=== PATIENT | male | born 1940 | race Caucasian/White ===

== ENCOUNTER 2020-03-06 13:43 | Emergency (ER) | payer MEDICARE, OTHER ==
--- NOTE | 2020-03-06 14:22 | EDM.PDOC ---
ED HPI GENERAL MEDICAL PROBLEM - General Chief Complaint: Respiratory Problem Stated Complaint: POSSIBLE COVID Time Seen by Provider: 03/06/20 13:57 Source of Information: Reports: Patient History Limitations: Reports: No Limitations - History of Present Illness INITIAL COMMENTS - FREE TEXT/NARRATIVE: HISTORY AND PHYSICAL: History of present illness: Patient is a 79-year-old male who presents emergency room today with his daughter for concern of possible COVID-19 infection. Patient states for the past 10 days he has had a cough, shortness of breath, sore throat, generalized weakness, chills but states he has not checked her temperature, and chest discomfort. Patient states over the last 1-2 days he has had worsening SOB/CP which is worse with deep inspiration. Patient states that he has been in direct contact with Covid as his daughter was tested positive for Covid 1 to 2 weeks ago and has been living with him. Patient states that his on Saturday, 2 days ago from a heart attack. Patient states he has a history of COPD and at his baseline his oxygen is 90% on room air and states that he does not have oxygen available to him at home. Patient states he has had 2 prior stents in his heart 8 years ago. Patient expresses a decrease in appetite. Patient denies fever. Denies headache, neck stiff ness, change in vision, syncope, or near syncope. Denies vomiting, abdominal pain, diarrhea, constipation, or dysuria. Has not noted any blood in urine or stool. Review of systems: As per history of present illness and below otherwise all systems reviewed and negative. Past medical history: As per history of present illness and as reviewed below otherwise noncontributory. Surgical history: As per history of present illness and as reviewed below otherwise noncontributory. Social history: See social history for further information Family history: As per history of present illness and as reviewed below otherwise noncontributory. Physical exam: General: Patient is alert, oriented, and in no acute distress. Patient sitting comfortably on exam table. Vitals stable and reviewed by me. O2 90% on my exam (Patient and daughter state this is his baseline with COPD). HEENT: Atraumatic, normocephalic, pupils equal and reactive bilaterally, negative for conjunctival pallor or scleral icterus, mucous membranes moist, TMs normal bilaterally, throat clear, neck supple, nontender, trachea midline. No drooling or trismus noted. No meningeal signs. No hot potato voice noted. Lungs: Patient speaking clearly without breathlessness, no wheezing or stridor, no accessory muscle use or respiratory distress. Auscultation deferred due to current COV-ID 19 outbreak. Heart: Auscultation deferred due to current COV-ID 19 outbreak. Dry cough on exam. Abdomen: Soft, nondistended, nontender. Negative for masses or hepatosplenomegaly. Negative for costovertebral tenderness. Pelvis: Stable nontender. Genitourinary: Deferred. Rectal: Deferred. Skin: Intact, warm, dry. No lesions or rashes noted. Extremities: Atraumatic, negative for cords or calf pain. Neurovascular unremarkable. Neuro: Awake, alert, oriented. Cranial nerves II through XII unremarkable. Cerebellum unremarkable. Motor and sensory unremarkable throughout. Exam nonfocal. Notes: HEART Score 6: Moderate Risk Dr. Rangel verbally involved in patient care. See his dictations for further EKG interpretation. Upon reexamination of patient, he is chest pain free but still expresses discomfort with deep inspiration and shortness of breath. He is comfortable on exam and remains vitally stable. Repeat troponin has increased, repeat EKG shows no acute changes. Patient does have chronic kidney disease and this appears stable today from past lab work. Prior past troponin for patient have all been negative that we have available on file for comparison. Although elevations in troponin related to COVID19 infection/CKD were considered/are possible, patient is a high risk for ACS and requires further evaluation by cardiology/higher level of care to r/o ACS. I did call and speak to [facility] and accepting of patient transfer. EMS arranged. Voices understanding and is agreeable to plan of care. Denies any further questions or concerns at this time. Diagnostics: COVID-19/influenza a/B, CBC, CMP, UA, EKG, chest x-ray, troponin D-dimer Therapeutics: Saline lock, ASA, Heparin bolus/gtt Impression: NSTEMI COVID-19 infection Chronic kidney disease, stable Plan: Transfer to [facility] via EMS. Definitive disposition and diagnosis as appropriate pending reevaluation and review of above. hips Pain Score (Numeric/FACES): 10 - Related Data Allergies Allergy/AdvReac Type Severity Reaction Status Date / Time codeine Allergy Other Verified 03/06/20 14:16 Penicillins Allergy Facial Verified 03/06/20 14:16 Swelling Home Meds: Home Meds Clopidogrel [Plavix] 75 mg PO DAILY 08/18/13 [History] atorvaSTATin [Lipitor] 40 mg PO BEDTIME 08/18/13 [History] Hydrochlorothiazide 25 mg PO DAILY #30 tablet 09/15/14 [Rx] Aspirin 81 mg PO DAILY 09/30/16 [History] Empagliflozin [Jardiance] 25 mg PO DAILY 03/09/18 [History] Fenofibrate 160 mg PO DAILY 03/09/18 [History] Isosorbide Mononitrate [Imdur] 60 mg PO DAILY 03/09/18 [History] Metoprolol Tartrate [Lopressor] 50 mg PO DAILY 03/09/18 [History] Omeprazole 20 mg PO BID 03/09/18 [History] Pioglitazone [Actos] 30 mg PO DAILY 03/09/18 [History] dilTIAZem HCL [Dilt-Xr] 240 mg PO DAILY 03/09/18 [History] Glimepiride 2 mg PO DAILY 03/06/20 [History] Past Medical History - Past Health History Medical/Surgical History: Denies Medical/Surgical History HEENT History: Reports: Hard of Hearing, Impaired Vision Cardiovascular History: Reports: High Cholesterol, Hypertension, Stents Respiratory History: Reports: None Gastrointestinal History: Reports: None Genitourinary History: Reports: None Musculoskeletal History: Reports: Arthritis Neurological History: Reports: None Psychiatric History: Reports: None Endocrine/Metabolic History: Reports: Diabetes, Type II Hematologic History: Reports: Anticoagulation Therapy Dermatologic History: Reports: None - Infectious Disease History Infectious Disease History: Reports: None Social & Family History - Family History Family Medical History: No Pertinent Family History ED ROS GENERAL - Review of Systems Review Of Systems: Comprehensive ROS is negative, except as noted in HPI. ED EXAM, GENERAL - Physical Exam Exam: See Below (See dictation) Course - Vital Signs Last Recorded V/S: Last Vital Signs Temp 97.8 F 03/06/20 14:13 Pulse 63 03/06/20 18:54 Resp 18 03/06/20 17:00 BP 122/41 L 03/06/20 18:54 Pulse Ox 93 L 03/06/20 18:54 - Orders/Labs/Meds Orders: Active Orders 24 hr Category Date Time Status Saline Lock Insert [OM.PC] Stat Oth 03/06/20 14:37 Ordered Labs: Laboratory Tests 03/06/20 03/06/20 03/06/20 Range/Units 14:58 15:15 15:15 WBC 3.63 L (4.0-11.0) K/uL RBC 4.43 L (4.50-5.90) M/uL Hgb 14.3 (13.0-17.0) g/dL Hct 43.8 (38.0-50.0) % MCV 98.9 H (80.0-98.0) fL MCH 32.3 H (27.0-32.0) pg MCHC 32.6 (31.0-37.0) g/dL RDW Std Deviation 48.7 (28.0-62.0) fl RDW Coeff of Guille 13 (11.0-15.0) % Plt Count 121 L (150-400) K/uL MPV 10.80 (7.40-12.00) fL Neut % (Auto) 60.6 (48.0-80.0) % Lymph % (Auto) 28.4 (16.0-40.0) % Butler % (Auto) 11.0 (0.0-15.0) % Eos % (Auto) 0.0 (0.0-7.0) % Baso % (Auto) 0.0 (0.0-1.5) % Neut # (Auto) 2.2 (1.4-5.7) K/uL Lymph # (Auto) 1.0 (0.6-2.4) K/uL Butler # (Auto) 0.4 (0.0-0.8) K/uL Eos # (Auto) 0.0 (0.0-0.7) K/uL Baso # (Auto) 0.0 (0.0-0.1) K/uL Nucleated RBC % 0.0 /100WBC Nucleated RBCs # 0 K/uL INR APTT (18.6-31.3) SEC D-Dimer, Quantitative 0.23 (0.0-0.50) mg/L FEU Sodium (136-148) mmol/L Potassium (3.5-5.1) mmol/L Chloride (98-107) mmol/L Carbon Dioxide (21.0-32.0) mmol/L BUN (7.0-18.0) mg/dL Creatinine (0.8-1.3) mg/dL Est Cr Clr Drug Dosing mL/min Estimated GFR (MDRD) ml/min Glucose (74-106) mg/dL POC Glucose (60-110) mg/dL Calcium (8.5-10.1) mg/dL Total Bilirubin (0.2-1.0) mg/dL AST (15-37) IU/L ALT (14-63) IU/L Alkaline Phosphatase (46-116) U/L Troponin I (0.000-0.056) ng/mL Total Protein (6.4-8.2) g/dL Albumin (3.4-5.0) g/dL Globulin (2.6-4.0) g/dL Albumin/Globulin Ratio (0.9-1.6) Urine Color YELLOW Urine Appearance CLEAR Urine pH 5.5 (5.0-8.0) Ur Specific [place] 1.020 (1.001-1.035) Urine Protein TRACE H (NEGATIVE) mg/dL Urine Glucose (UA) 500 H (NEGATIVE) mg/dL Urine Ketones NEGATIVE (NEGATIVE) mg/dL Urine Occult Blood NEGATIVE (NEGATIVE) Urine Nitrite NEGATIVE (NEGATIVE) Urine Bilirubin NEGATIVE (NEGATIVE) Urine Urobilinogen 0.2 (<2.0) EU/dL Ur Leukocyte Esterase NEGATIVE (NEGATIVE) Urine RBC 0-2 (0-2/HPF) Urine WBC 0-2 (0-5/HPF) Ur Epithelial Cells RARE (NONE-FEW) Urine Bacteria RARE (NEGATIVE) Influenza Type A RNA (NEGATIVE) Influenza Type B RNA (NEGATIVE) SARS-CoV-2 RNA (SHAHLA) (NEGATIVE) 03/06/20 03/06/20 03/06/20 Range/Units 15:15 15:22 17:28 WBC (4.0-11.0) K/uL RBC (4.50-5.90) M/uL Hgb (13.0-17.0) g/dL Hct (38.0-50.0) % MCV (80.0-98.0) fL MCH (27.0-32.0) pg MCHC (31.0-37.0) g/dL RDW Std Deviation (28.0-62.0) fl RDW Coeff of Guille (11.0-15.0) % Plt Count (150-400) K/uL MPV (7.40-12.00) fL Neut % (Auto) (48.0-80.0) % Lymph % (Auto) (16.0-40.0) % Butler % (Auto) (0.0-15.0) % Eos % (Auto) (0.0-7.0) % Baso % (Auto) (0.0-1.5) % Neut # (Auto) (1.4-5.7) K/uL Lymph # (Auto) (0.6-2.4) K/uL Butler # (Auto) (0.0-0.8) K/uL Eos # (Auto) (0.0-0.7) K/uL Baso # (Auto) (0.0-0.1) K/uL Nucleated RBC % /100WBC Nucleated RBCs # K/uL INR APTT (18.6-31.3) SEC D-Dimer, Quantitative (0.0-0.50) mg/L FEU Sodium 134 L (136-148) mmol/L Potassium 3.5 (3.5-5.1) mmol/L Chloride 97 L (98-107) mmol/L Carbon Dioxide 29.3 (21.0-32.0) mmol/L BUN 29 H (7.0-18.0) mg/dL Creatinine 1.5 H (0.8-1.3) mg/dL Est Cr Clr Drug Dosing 43.93 mL/min Estimated GFR (MDRD) 45.4 ml/min Glucose 117 H (74-106) mg/dL POC Glucose (60-110) mg/dL Calcium 9.4 (8.5-10.1) mg/dL Total Bilirubin 0.8 (0.2-1.0) mg/dL AST 71 H (15-37) IU/L ALT 48 (14-63) IU/L Alkaline Phosphatase 40 L (46-116) U/L Troponin I 0.066 H* 0.072 H* (0.000-0.056) ng/mL Total Protein 7.8 (6.4-8.2) g/dL Albumin 3.6 (3.4-5.0) g/dL Globulin 4.2 H (2.6-4.0) g/dL Albumin/Globulin Ratio 0.9 (0.9-1.6) Urine Color Urine Appearance Urine pH (5.0-8.0) Ur Specific [place] (1.001-1.035) Urine Protein (NEGATIVE) mg/dL Urine Glucose (UA) (NEGATIVE) mg/dL Urine Ketones (NEGATIVE) mg/dL Urine Occult Blood (NEGATIVE) Urine Nitrite (NEGATIVE) Urine Bilirubin (NEGATIVE) Urine Urobilinogen (<2.0) EU/dL Ur Leukocyte Esterase (NEGATIVE) Urine RBC (0-2/HPF) Urine WBC (0-5/HPF) Ur Epithelial Cells (NONE-FEW) Urine Bacteria (NEGATIVE) Influenza Type A RNA NEGATIVE (NEGATIVE) Influenza Type B RNA NEGATIVE (NEGATIVE) SARS-CoV-2 RNA (SHAHLA) POSITIVE H (NEGATIVE) 03/06/20 03/06/20 Range/Units 18:01 18:10 WBC (4.0-11.0) K/uL RBC (4.50-5.90) M/uL Hgb (13.0-17.0) g/dL Hct (38.0-50.0) % MCV (80.0-98.0) fL MCH (27.0-32.0) pg MCHC (31.0-37.0) g/dL RDW Std Deviation (28.0-62.0) fl RDW Coeff of Guille (11.0-15.0) % Plt Count (150-400) K/uL MPV (7.40-12.00) fL Neut % (Auto) (48.0-80.0) % Lymph % (Auto) (16.0-40.0) % Butler % (Auto) (0.0-15.0) % Eos % (Auto) (0.0-7.0) % Baso % (Auto) (0.0-1.5) % Neut # (Auto) (1.4-5.7) K/uL Lymph # (Auto) (0.6-2.4) K/uL Butler # (Auto) (0.0-0.8) K/uL Eos # (Auto) (0.0-0.7) K/uL Baso # (Auto) (0.0-0.1) K/uL Nucleated RBC % /100WBC Nucleated RBCs # K/uL INR 1.35 APTT 32.0 H (18.6-31.3) SEC D-Dimer, Quantitative (0.0-0.50) mg/L FEU Sodium (136-148) mmol/L Potassium (3.5-5.1) mmol/L Chloride (98-107) mmol/L Carbon Dioxide (21.0-32.0) mmol/L BUN (7.0-18.0) mg/dL Creatinine (0.8-1.3) mg/dL Est Cr Clr Drug Dosing mL/min Estimated GFR (MDRD) ml/min Glucose (74-106) mg/dL POC Glucose 111 H (60-110) mg/dL Calcium (8.5-10.1) mg/dL Total Bilirubin (0.2-1.0) mg/dL AST (15-37) IU/L ALT (14-63) IU/L Alkaline Phosphatase (46-116) U/L Troponin I (0.000-0.056) ng/mL Total Protein (6.4-8.2) g/dL Albumin (3.4-5.0) g/dL Globulin (2.6-4.0) g/dL Albumin/Globulin Ratio (0.9-1.6) Urine Color Urine Appearance Urine pH (5.0-8.0) Ur Specific [place] (1.001-1.035) Urine Protein (NEGATIVE) mg/dL Urine Glucose (UA) (NEGATIVE) mg/dL Urine Ketones (NEGATIVE) mg/dL Urine Occult Blood (NEGATIVE) Urine Nitrite (NEGATIVE) Urine Bilirubin (NEGATIVE) Urine Urobilinogen (<2.0) EU/dL Ur Leukocyte Esterase (NEGATIVE) Urine RBC (0-2/HPF) Urine WBC (0-5/HPF) Ur Epithelial Cells (NONE-FEW) Urine Bacteria (NEGATIVE) Influenza Type A RNA (NEGATIVE) Influenza Type B RNA (NEGATIVE) SARS-CoV-2 RNA (SHAHLA) (NEGATIVE) Meds: Medications Discontinued Medications Generic Name Dose Route Start Last Admin Trade Name Freq PRN Reason Stop Dose Admin Aspirin 324 mg 03/06/20 16:03 03/06/20 16:07 Aspirin PO 03/06/20 16:04 324 mg ONETIME ONE Administration Aspirin Confirm 03/06/20 16:04 03/06/20 16:06 Aspirin Administered 03/06/20 16:05 Not Given Dose 324 mg .ROUTE .STK-MED ONE Dexamethasone 6 mg 03/06/20 17:18 03/06/20 17:38 Decadron IVPUSH 03/06/20 17:19 6 mg ONETIME ONE Administration Heparin Sodium (Porcine) 4,000 units 03/06/20 18:21 03/06/20 18:45 Heparin Sodium IVPUSH 03/06/20 18:22 4,000 units .BOLUS ONE Administration Sodium Chloride 1,000 mls @ 999 mls/hr 03/06/20 14:37 03/06/20 15:04 Normal Saline IV 03/06/20 15:37 999 mls/hr BOLUS ONE Administration Heparin Sodium/Sodium Chloride 500 mls @ 26.127 mls/hr 03/06/20 18:15 Heparin 25,000 Units In 1/2 Ns 500 Ml IV TITRATE ROSA Protocol 12 UNITS/KG/HR Heparin Sodium/Sodium Chloride 500 mls @ 26.127 mls/hr 03/06/20 18:15 Heparin 25,000 Units In 1/2 Ns 500 Ml IV TITRATE ROSA Protocol 12 UNITS/KG/HR Heparin Sodium/Sodium Chloride 500 mls @ 26.127 mls/hr 03/06/20 18:30 03/06/20 18:45 Heparin 25,000 Units In 1/2 Ns 500 Ml IV 12 units/kg/hr TITRATE ROSA 26.127 mls/hr Administration Protocol 12 UNITS/KG/HR Sodium Chloride 10 ml 03/06/20 14:37 03/06/20 15:04 Saline Flush FLUSH 10 ml ASDIRECTED PRN Administration Keep Vein Open Sodium Chloride 2.5 ml 03/06/20 14:37 03/06/20 15:05 Saline Flush FLUSH 2.5 ml ASDIRECTED PRN Administration Keep Vein Open Departure - Departure Time of Disposition: 18:37 Disposition: DC/Tfer to Acute Hospital 02 Condition: Fair Clinical Impression: COVID-19 virus infection, Non-ST elevation CT (NSTEMI) Chronic kidney disease Qualifiers: Chronic kidney disease stage: unspecified stage Qualified Code(s): N18.9 - Chronic kidney disease, unspecified - Discharge Information Referrals: PCP,Not In Area [Primary Care Provider] - Forms: ED Department Discharge Sepsis Event Note (ED) - Evaluation Sepsis Screening Result: No Definite Risk - Focused Exam Vital Signs: Vital Signs Temp Pulse Resp BP Pulse Ox 03/06/20 18:54 63 122/41 L 93 L 03/06/20 17:00 67 18 170/86 H 91 L 03/06/20 16:22 68 18 145/58 H 92 L 03/06/20 14:13 97.8 F 70 16 116/51 L 91 L - My Orders Last 24 Hours: My Active Orders 03/06/20 14:37 Saline Lock Insert [OM.PC] Stat - Assessment/Plan Last 24 Hours: My Active Orders 03/06/20 14:37 Saline Lock Insert [OM.PC] Stat
--- NOTE | 2020-03-06 14:27 | PCM.SN.2 ---
- Free Text/Narrative Note: EKG Time 219pm Rate 68 NSR no LENORA
[2020-03-06] MEDS ORDERED: Sodium Chloride 0.9% 10 ML Syringe FLUSH PRN (14:37)
[2020-03-06] MEDS ORDERED: Sodium Chloride 0.9% 1,000 ML IV ONE (14:37)
[2020-03-06] MEDS ORDERED: Sodium Chloride 0.9% 2.5 ML Syringe FLUSH PRN (14:37)
--- NOTE | 2020-03-06 15:29 | CR ---
INDICATION: Dyspnea and chest pain COMPARISON: March 09, 2018 TECHNIQUE: Single-view portable chest radiograph FINDINGS: TUBES AND LINES: None. HEART AND MEDIASTINUM: Heart size top normal and appears unchanged.. LUNGS AND PLEURAL SPACES: Mild to moderate ground-glass opacities involving the mid lungs and the bases bilaterally. This is probably inflammatory.Consider viral pneumonia. OSSEOUS STRUCTURES: Age-appropriate appearance. No acute focal finding. IMPRESSION: Mild to moderate ground-glass opacities involving the mid lungs in the bases bilaterally. No pleural effusion or pneumothorax. This is probably inflammatory. Consider viral pneumonia. Dictated by Yaya Thorpe MD @ Mar 06 2020 3:26PM Signed by Dr. Yaya Thorpe @ Mar 06 2020 3:27PM
[2020-03-06 15:58] LABS: CARBON DIOXIDE,CO2 29.3 mmol/L (21.0-32.0); POTASSIUM,K 3.5 mmol/L (3.5-5.1)
[2020-03-06] MEDS ORDERED: Aspirin 81 MG Tab.Chew PO ONE (16:03)
[2020-03-06] MEDS ORDERED: Aspirin 81 MG Tab.Chew ONE (16:04)
[2020-03-06 16:17] LABS: CORONAVIRUS COVID-19 NAA POSITIVE (NEGATIVE); INFLUENZA A NAA NEGATIVE (NEGATIVE); INFLUENZA B NAA NEGATIVE (NEGATIVE)
[2020-03-06] MEDS ORDERED: Dexamethasone 10 MG/ML SDV IVPUSH ONE (17:18)
[2020-03-06] MEDS ORDERED: Heparin Sodium/0.45% NaCl 500 ML IV SCH ×3 (18:15→18:30)
[2020-03-06] MEDS ORDERED: Heparin Sodium 5,000 Units/ML Vial IVPUSH ONE (18:21)
[2020-03-06 18:54] VITALS: BP 122/41; PULSE 63
== END 2020-03-06 17:25 ==
LOC: MW.ED 13:43
DX: U07.1 COVID-19 (principal); I21.4 Non-ST elevation (NSTEMI) myocardial infarction; I12.9 Hypertensive chronic kidney disease with stage 1 through stage 4 chronic kidney disease, or unspecified chronic kidney disease; E11.22 Type 2 diabetes mellitus with diabetic chronic kidney disease; N18.9 Chronic kidney disease, unspecified; E78.00 Pure hypercholesterolemia, unspecified; M19.90 Unspecified osteoarthritis, unspecified site; Z88.5 Allergy status to narcotic agent; Z88.0 Allergy status to penicillin; Z79.02 Long term (current) use of antithrombotics/antiplatelets; Z79.01 Long term (current) use of anticoagulants; Z79.82 Long term (current) use of aspirin; Z79.899 Other long term (current) drug therapy
CPT/HCPCS: 0240U; 36415; 71045; 80053; 81001; 82962; 84484; 85025; 85379; 85610; 85730; 93005; 96374; 99285; A9270; J1100; J1644; J7030; 93010; 99284

== ENCOUNTER 2020-03-11 14:01 | Emergency (ER) | payer MEDICARE, OTHER ==
--- NOTE | 2020-03-11 14:32 | EDM.PDOC ---
ED HPI GENERAL MEDICAL PROBLEM - General Chief Complaint: Respiratory Problem Stated Complaint: DIFFICULTY BREATHING/STOMACH PAIN Time Seen by Provider: 03/11/20 14:16 Source of Information: Reports: Patient History Limitations: Reports: No Limitations - History of Present Illness INITIAL COMMENTS - FREE TEXT/NARRATIVE: Patient is a 79-year-old male who previous has a positive for Covid presents today for increasing shortness of breath and fatigue. Patient also reporting some abdominal pain. Patient states at home that they checked his pulse ox and he read about 88%. Patient is able to walk to the bathroom to the kitchen but has not been doing much walking. Patient has had decreased appetite does keep some food down. Denies fever chills or chest pain. In the hospital did not require oxygen will discharge but was on oxygen 2 L for comfort while admitted. abdomen Pain Score (Numeric/FACES): 4 - Related Data Allergies Allergy/AdvReac Type Severity Reaction Status Date / Time codeine Allergy Other Verified 03/11/20 14:49 Penicillins Allergy Facial Verified 03/11/20 14:49 Swelling Home Meds: Home Meds Clopidogrel [Plavix] 75 mg PO DAILY 08/18/13 [History] Hydrochlorothiazide 25 mg PO DAILY #30 tablet 09/15/14 [Rx] Empagliflozin [Jardiance] 25 mg PO DAILY 03/09/18 [History] Fenofibrate 160 mg PO DAILY 03/09/18 [History] Isosorbide Mononitrate [Imdur] 60 mg PO DAILY 03/09/18 [History] Metoprolol Tartrate [Lopressor] 50 mg PO BID 03/09/18 [History] Omeprazole 40 mg PO DAILY 03/09/18 [History] Pioglitazone [Actos] 30 mg PO DAILY 03/09/18 [History] dilTIAZem HCL [Dilt-Xr] 240 mg PO DAILY 03/09/18 [History] Glimepiride 2 mg PO DAILY 03/06/20 [History] Dulaglutide [Trulicity] 1.5 mg SQ WEEKLY 03/11/20 [History] Nystatin [Nystatin Crm] 1 applic TP BID 03/11/20 [History] Triamcinolone Acetonide [Triamcinolone Acetonide 0.1% Oint] 1 applic TP BID 03/11/20 [History] atorvaSTATin [Lipitor] 40 mg PO BEDTIME 03/11/20 [History] Past Medical History - Past Health History Medical/Surgical History: Denies Medical/Surgical History HEENT History: Reports: Hard of Hearing, Impaired Vision Cardiovascular History: Reports: High Cholesterol, Hypertension, Stents Respiratory History: Reports: None Gastrointestinal History: Reports: None Genitourinary History: Reports: None Musculoskeletal History: Reports: Arthritis Neurological History: Reports: None Psychiatric History: Reports: None Endocrine/Metabolic History: Reports: Diabetes, Type II Hematologic History: Reports: Anticoagulation Therapy Dermatologic History: Reports: None - Infectious Disease History Infectious Disease History: Reports: None - Past Surgical History Other Cardiovascular Surgeries/Procedures: 2 stents Social & Family History - Family History Family Medical History: No Pertinent Family History ED ROS GENERAL - Review of Systems Review Of Systems: See Below Constitutional: Reports: No Symptoms HEENT: Reports: No Symptoms Respiratory: Reports: Shortness of Breath Cardiovascular: Reports: No Symptoms Endocrine: Reports: No Symptoms GI/Abdominal: Reports: Abdominal Pain : Reports: No Symptoms Musculoskeletal: Reports: No Symptoms Skin: Reports: No Symptoms Neurological: Reports: No Symptoms Psychiatric: Reports: No Symptoms Hematologic/Lymphatic: Reports: No Symptoms Immunologic: Reports: No Symptoms ED EXAM, GENERAL - Physical Exam Exam: See Below Exam Limited By: No Limitations General Appearance: Alert, WD/WN Respiratory/Chest: No Respiratory Distress, Lungs Clear Cardiovascular: Normal Peripheral Pulses, Regular Rate, Rhythm GI/Abdominal: Normal Bowel Sounds, Soft, Non-Tender Back Exam: Normal Inspection, Full Range of Motion Extremities: Normal Range of Motion Neurological: Alert, Oriented, CN II-XII Intact, Normal Cognition #1 Interpretation EKG Date: 03/11/20 Time: 14:30 Rhythm: NSR Rate (Beats/Min): 72 ST-T: Normal Course - Vital Signs Last Recorded V/S: Last Vital Signs Temp 98.4 F 03/11/20 14:15 Pulse 68 03/11/20 18:44 Resp 20 03/11/20 18:44 BP 117/42 L 03/11/20 17:44 Pulse Ox 91 L 03/11/20 18:44 - Orders/Labs/Meds Orders: Active Orders 24 hr Category Date Time Status EKG Documentation Completion [RC] STAT Care 03/11/20 14:33 Active Labs: Laboratory Tests 03/11/20 03/11/20 03/11/20 Range/Units 15:34 15:34 15:34 WBC 13.24 H (4.0-11.0) K/uL RBC 4.93 (4.50-5.90) M/uL Hgb 15.9 (13.0-17.0) g/dL Hct 47.0 (38.0-50.0) % MCV 95.3 (80.0-98.0) fL MCH 32.3 H (27.0-32.0) pg MCHC 33.8 (31.0-37.0) g/dL RDW Std Deviation 45.1 (28.0-62.0) fl RDW Coeff of Guille 13 (11.0-15.0) % Plt Count 230 (150-400) K/uL MPV 11.30 (7.40-12.00) fL Neut % (Auto) 75.6 (48.0-80.0) % Lymph % (Auto) 15.1 L (16.0-40.0) % [place] % (Auto) 9.1 (0.0-15.0) % Eos % (Auto) 0.0 (0.0-7.0) % Baso % (Auto) 0.2 (0.0-1.5) % Neut # (Auto) 10.0 H (1.4-5.7) K/uL Lymph # (Auto) 2.0 (0.6-2.4) K/uL [place] # (Auto) 1.2 H (0.0-0.8) K/uL Eos # (Auto) 0.0 (0.0-0.7) K/uL Baso # (Auto) 0.0 (0.0-0.1) K/uL Nucleated RBC % 0.0 /100WBC Nucleated RBCs # 0 K/uL D-Dimer, Quantitative 1.99 H (0.0-0.50) mg/L FEU Sodium 138 (136-148) mmol/L Potassium 3.2 L (3.5-5.1) mmol/L Chloride 98 (98-107) mmol/L Carbon Dioxide 25.8 (21.0-32.0) mmol/L BUN 43 H (7.0-18.0) mg/dL Creatinine 1.4 H (0.8-1.3) mg/dL Est Cr Clr Drug Dosing TNP Estimated GFR (MDRD) 49.1 ml/min Glucose 202 H (74-106) mg/dL Calcium 9.6 (8.5-10.1) mg/dL Total Bilirubin 0.9 (0.2-1.0) mg/dL AST 55 H (15-37) IU/L ALT 64 H (14-63) IU/L Alkaline Phosphatase 47 (46-116) U/L Creatine Kinase 120 (26-308) U/L Troponin I < 0.050 (0.000-0.056) ng/mL Total Protein 7.7 (6.4-8.2) g/dL Albumin 3.4 (3.4-5.0) g/dL Globulin 4.3 H (2.6-4.0) g/dL Albumin/Globulin Ratio 0.8 L (0.9-1.6) Meds: Medications Discontinued Medications Generic Name Dose Route Start Last Admin Trade Name Freq PRN Reason Stop Dose Admin Iopamidol 100 ml 03/11/20 17:51 03/11/20 17:52 Isovue Multipack-370 (76%) IVPUSH 03/11/20 17:52 100 ml ONETIME ONE Administration Ketorolac Tromethamine 15 mg 03/11/20 16:29 03/11/20 16:35 Toradol IVPUSH 03/11/20 16:30 15 mg ONETIME ONE Administration Midazolam HCl 1 mg 03/11/20 17:13 03/11/20 17:30 Versed 1 Mg/Ml IVPUSH 03/11/20 17:14 1 mg ONETIME ONE Administration - Re-Assessments/Exams Free Text/Narrative Re-Assessment/Exam: 03/11/20 18:[address] is reviewed does show duodenitis. Patient lungs show Covid morning which was positive for ready. Patient will like to be sent home on home O2. Will set up for patient. Patient has been satting well on 2 L greater than 95%. 03/11/20 19:03 Gnosis is Covid with hypoxia. Patient currently on 3 L of oxygen satting 95%. Patient has symptoms of dyspnea with exertion. Patient condition is mild. Options going to help patient with comfort unable to ambulate and do daily activities. Patient's been tried on room air and also has had CAT scans show Covid pneumonia. Patient also on antibiotics does not improve his dyspnea. Patient was already admitted and has been doing fine on 2 to 3 L of oxygen. Departure - Departure Time of Disposition: 18:53 Disposition: Home, Self-Care 01 Condition: Good Clinical Impression: Dyspnea - Discharge Information *PRESCRIPTION DRUG MONITORING PROGRAM REVIEWED*: Not Applicable *COPY OF PRESCRIPTION DRUG MONITORING REPORT IN PATIENT FREDRICK: Not Applicable Instructions: Shortness of Breath, Adult, [id number] Referrals: PCP,Not In Area [Primary Care Provider] - Forms: ED Department Discharge Additional Instructions: The following information is given to patients seen in the emergency department who are being discharged to home. This information is to outline your options for follow-up care. We provide all patients seen in our emergency department with a follow-up referral. The need for follow-up, as well as the timing and circumstances, are variable depending upon the specifics of your emergency department visit. If you don't have a primary care physician on staff, we will provide you with a referral. We always advise you to contact your personal physician following an emergency department visit to inform them of the circumstance of the visit and for follow-up with them and/or the need for any referrals to a consulting specialist. The emergency department will also refer you to a specialist when appropriate. This referral assures that you have the opportunity for follow-up care with a specialist. All of these measure are taken in an effort to provide you with optimal care, which includes your follow-up. Under all circumstances we always encourage you to contact your private physician who remains a resource for coordinating your care. When calling for follow-up care, please make the office aware that this follow-up is from your recent emergency room visit. If for any reason you are refused follow-up, please contact the [facility] Emergency Department at and asked to speak to the emergency department charge nurse. Please follow up with your primary care physician. If you do not have a primary care physician, see below: [facility] [address] [place] [id number] [facility] [address] [place] [id number] Follow-up with your primary care physician. We will send home oxygen if you have any increased shortness of breath please return to the ED. Sepsis Event Note (ED) - Focused Exam Vital Signs: Vital Signs Temp Pulse Resp BP Pulse Ox 03/11/20 18:44 68 20 91 L 03/11/20 17:44 59 L 18 117/42 L 95 03/11/20 17:04 73 20 114/63 92 L 03/11/20 16:32 72 03/11/20 14:15 98.4 F 71 22 H 101/61 90 L - My Orders Last 24 Hours: My Active Orders 03/11/20 14:33 EKG Documentation Completion [RC] STAT - Assessment/Plan Last 24 Hours: My Active Orders 03/11/20 14:33 EKG Documentation Completion [RC] STAT Assessment:: Patient is a 79-year-old male who was recently discharged admitted for Covid p resents today for more increasing shortness of breath and now abdominal pain. Patient lungs are clear and he sat 90% on room air. Patient has some distention but no tenderness of the abdomen will obtain labs and CAT scan reassess.
--- NOTE | 2020-03-11 15:43 | CR ---
Indication: SOB. History of COVID-19. Technique: Chest 1 view Comparison: 03/06/2020 Findings/Impression: Cardiovascular and mediastinum: Stable cardiomediastinal silhouettes, allowing for differences in technique. Lungs and pleural space: Patchy opacities in the periphery of the mid and lower lungs consistent with infectious infiltrates, including COVID-19 pneumonia. Correlate clinically and follow-up. No pleural effusions. No pneumothorax seen. Bones and soft tissues: No significant change. Dictated by Blue Merida MD @ Mar 11 2020 3:39PM Signed by Dr. Blue Merida @ Mar 11 2020 3:41PM
[2020-03-11 16:24] LABS: BLOOD UREA NITROGEN,BUN 43 mg/dL (7.0-18.0); CARBON DIOXIDE,CO2 25.8 mmol/L (21.0-32.0); CHLORIDE,CL 98 mmol/L (98-107); GLUCOSE RANDOM 202 mg/dL (74-106); POTASSIUM,K 3.2 mmol/L (3.5-5.1); SODIUM,NA 138 mmol/L (136-148)
[2020-03-11] MEDS ORDERED: Ketorolac 30 MG/ML SDV IVPUSH ONE (16:29)
[2020-03-11] MEDS ORDERED: Midazolam 1 MG/ML 2 ML SDV IVPUSH ONE (17:13)
[2020-03-11] MEDS ORDERED: Iopamidol 755 MG/ML 500 ML Multipack Bottle IVPUSH ONE (17:51)
--- NOTE | 2020-03-11 18:26 | CT ---
INDICATION: Elevated D-dimer, positive for COVID 5 days ago, dyspnea. The patient was sedated for the exam due to severe claustrophobia, with arms strapped down by sides. COMPARISON: Chest radiograph 03/11/2020. TECHNIQUE: CT of the chest with 100 cc of Isovue 370 350 IV contrast. Coronal and sagittal reconstructions. 3D post processing was performed. FINDINGS: Heart size upper limits of normal. Normal caliber thoracic aorta and central pulmonary arteries. Coronary artery and aortic vascular calcifications. Negative for acute pulmonary embolism. No pericardial effusion. No thoracic lymphadenopathy. There are multifocal patchy ground-glass opacities in the mid and lower lungs bilaterally which are likely infectious or inflammatory. No pleural effusion or pneumothorax. No pulmonary nodules identified. No central endobronchial lesion. The thyroid gland is normal in appearance. The visualized upper abdomen is unremarkable. Degenerative changes of the spine. Lucent lesion in the right glenoid likely represents a degenerative subchondral cyst. IMPRESSION: 1. Negative for acute pulmonary embolism. 2. Multifocal patchy ground-glass opacities in the mid and lower lungs bilaterally are likely infectious or inflammatory. Findings could be seen in the setting of COVID pneumonia. Please note that all CT scans at this facility use dose modulation, iterative reconstruction, and/or weight-based dosing when appropriate to reduce radiation dose to as low as reasonably achievable. Dictated by Casie Richardson MD @ Mar 11 2020 6:15PM Signed by Dr. Casie Richardson @ Mar 11 2020 6:24PM
--- NOTE | 2020-03-11 18:36 | CT ---
INDICATION: Abdominal distension, COVID positive. TECHNIQUE: CT of the abdomen and pelvis with 100 cc Isovue 370 IV contrast. Coronal and sagittal reconstructions. COMPARISON: None. FINDINGS: The liver is mildly enlarged measuring 19.7 cm in length. Mild diffuse hepatic steatosis. Hepatic and portal veins are patent. The gallbladder, spleen, pancreas, and adrenal glands are negative. Symmetric enhancement of the kidneys. No hydronephrosis. No obstructing urinary calculi. The bladder is normal in appearance. Prostate calcifications. No bowel dilation. Negative appendix. There appears to be mild wall thickening and mucosal hyperenhancement of the proximal duodenum with trace adjacent free fluid (series 501, image 57 and series 503, image 56). This could be inflammatory such as a mild duodenitis. No intraperitoneal free air. Aortoiliac vascular calcifications. No lymphadenopathy. Degenerative changes of the spine Patchy ground-glass opacities in both lung bases are likely infectious or inflammatory. Coronary artery calcifications. IMPRESSION: 1. Possible inflammatory changes of the proximal duodenum which could represent a mild duodenitis. No evidence of perforation. 2. No other acute findings in the abdomen or pelvis. 3. Mild hepatomegaly with mild diffuse hepatic steatosis. 4. Patchy ground-glass opacities in both lung bases are likely infectious or inflammatory. Please note that all CT scans at this facility use dose modulation, iterative reconstruction, and/or weight-based dosing when appropriate to reduce radiation dose to as low as reasonably achievable. Dictated by Casie Richardson MD @ Mar 11 2020 6:24PM Signed by Dr. Casie Richardson @ Mar 11 2020 6:35PM
[2020-03-11 21:40] VITALS: BP 106/56; PULSE 69
== END 2020-03-11 20:58 | disposition home or self-care (01) ==
LOC: MW.ED 14:01
DX: R06.02 Shortness of breath (principal); R53.83 Other fatigue; E78.00 Pure hypercholesterolemia, unspecified; I10 Essential (primary) hypertension; E11.9 Type 2 diabetes mellitus without complications; Z79.84 Long term (current) use of oral hypoglycemic drugs; Z79.899 Other long term (current) drug therapy; Z79.02 Long term (current) use of antithrombotics/antiplatelets; Z88.5 Allergy status to narcotic agent; Z88.0 Allergy status to penicillin
CPT/HCPCS: 36415; 71045; 71275; 74177; 80053; 82550; 84484; 85025; 85379; 93005; 96374; 96375; 99285; J1885; J2250; Q9967; 93010; 99283